=== PATIENT | female | born 1985 | race African-American/Black ===

== ENCOUNTER 2018-07-26 07:18 | Outpatient (CLI) | payer BC ==
[2018-07-26] MEDS ORDERED: Gadobenate Dimeglumine 529 MG/1 ML (20ML VIAL) ONE (08:45)
--- NOTE | 2018-07-26 10:34 | MRI ---
MRI PELVIS WITH AND WITHOUT CONTRAST: HISTORY: D25.9, leiomyoma of uterus. COMPARISON: None. FINDINGS: BONES: No fracture. No malalignment. No stress edema. There is a very large fibroid uterus with multiple different stages of necrosis and degeneration. Th ere is a very large, pedunculated, subserosal, left-sided fibroid, measuring 5.6 x 5.6 x 8.5 cm. There is no pelvic adenopathy appreciated. Overall, the uterine size measures 11 cm transverse x 10 cm AP x approximately 12 cm craniocaudad dimension. The liver is not well delineated on this examina tion due to extensive mass effect. The ovaries appear unremarkable. IMPRESSION: 1. Large fibroid uterus with innumerable subserosal, intramural, and submucosal fibroids. There are also pedunculated large left fundal fibroids with a small right uterine body, 2 x 3 x 2 cm peduncula jerod fibroid. Fibroids are in differening stages of degeneration. No evidence for metastatic disease or internal adenopathy to suggest malignant differentiation. 2. Small volume free fluid in the pelvis. 3. Normal appearance of the ovaries. POS: CET
--- NOTE | 2018-07-26 11:21 | MRI ---
Exam: Brain MRI with and without contrast HISTORY: Multiple sclerosis. COMPARISON: 08/21/2014 FINDINGS: Gradient echo sequence: No hemorrhage Calvarium: Appropriate T1 marrow signal intensity Midline brain parenchyma: Unremarkable Cerebrum:Redemonstration of white matter hyperintensities predominantly periventricular distribution, having an orientation compatible with the patient's history of demyelinating disease. The overall degree of white matter signal abnormality has not changed. No pathologic enhancement the brain parenc hyma. Ventricles: No evidence of hydrocephalus. Sinuses and mastoid air cells: Adequate aeration Diffusion: Central arterial flow is maintained. Absent restricted diffusion. Postcontrast images: No pathologic enhancement of the brain parenchyma. IMPRESSION: 1. Stable T2 and FLAIR white matter hyperintensities no evidence of restricted diffusion or enhanceme nt to suggest active demyelination.
== END 2018-07-26 07:19 | disposition home or self-care (01) ==
LOC: BICMRI 07:18
PROVIDERS: ATTEND Obstetrics & Gynecology
DX: G35 Multiple sclerosis (principal); D25.0 Submucous leiomyoma of uterus; D25.1 Intramural leiomyoma of uterus; D25.2 Subserosal leiomyoma of uterus; Z79.899 Other long term (current) drug therapy
CPT/HCPCS: 70553; 72197; A9577

== ENCOUNTER 2018-12-30 08:12 | Outpatient (CLI) | payer BC ==
--- NOTE | 2018-12-30 08:59 | MRI ---
MRI Brain WO Con: 12/30/2018 12:00 AM CLINICAL HISTORY: Multiple sclerosis. COMPARISON: July 26, 2018 FINDINGS: Extra axial spaces: Normal in size and morphology for the patient's age. Acute infarction: None. Ventricular system: Normal in size and morphology for the patient's age. Basal cisterns: Normal. Cerebral parenchyma: There are stable multifocal signal abnormalities of the cerebral hemispheres, le ft greater than right, with involvement of the corpus callosum, similar appearing. Midline shift: None. Cerebellum: Normal. Brainstem: Normal. Paranasal sinuses:Clear Stable prominence of scalp soft tissues. IMPRESSION:Stable parenchymal signal abnormalities of the brain. Findings are consistent with the pro vided history of multiple sclerosis.
--- NOTE | 2018-12-30 09:35 | MRI ---
MRI Cervical spine without contrast: HISTORY: Multiple sclerosis COMPARISON: None FINDINGS: The craniocervical junction is unremarkable. No significant cord signal abnormality. Reversal of normal cervical curvature, with mild focal kyphosis centered at C4. There is no expansile lesion of the cervical spinal cord. No discrete, intramedullary signal adenopat hy is identified. C1-2:No significant stenosis. C2-3:No significant stenosis. C3-4:No significant stenosis. C4-5:Slight disc bulge, concentric, without high-grade stenosis. C5-6:No significant stenosis. C6-7: No significant stenosis. C7-T1:No significant stenosis. IMPRESSION: No acute cord signal abnormality, or expansile process of the cervical spine, by noncontrast imaging. Evaluation for underlying lesions is limited without the presence of IV contrast. Minimal disc degenerative change at C4-5.
== END 2018-12-30 08:13 | disposition home or self-care (01) ==
LOC: TBSIIMAG 08:12
DX: G35 Multiple sclerosis (principal); M47.812 Spondylosis without myelopathy or radiculopathy, cervical region
CPT/HCPCS: 70551; 72141

== ENCOUNTER 2020-12-02 02:10 | Emergency (ER) | payer BC | END 2020-12-02 03:18 | disposition home or self-care (01) | LOC: ERS 02:10 | DX: U07.1 COVID-19 (principal); F41.9 Anxiety disorder, unspecified | CPT/HCPCS: 99281 ==